=== PATIENT | female | born 1935 | race Caucasian/White ===

== ENCOUNTER 2020-01-03 22:12 | Emergency (ER) | payer MEDICARE, BC ==
[~2020-01-03] VITALS: Ht 157.5 cm; Wt 58.6 kg
[2020-01-03] MEDS ORDERED: normal saline 1000ML IV soln IVB ONE (22:20)
[2020-01-03 23:27] LABS: BASOPHILS # (AUTO) 0.1 X10'3 (0-0.2); BASOPHILS % (AUTO) 0.6 % (0-1); EOSINOPHILS % (AUTO) 0.1 % (0-6); HEMATOCRIT 41.2 % (35.0-45.0); HEMOGLOBIN 14.1 g/dl (12.0-16.0); LYMPHOCYTES # (AUTO) 1.5 X10'3 (1.1-4.8); LYMPHOCYTES % (AUTO) 14.4 % (21-51); MEAN CORPUSCULAR HEMOGLOBIN 32.1 PG (27.0-31.0); MEAN CORPUSCULAR HGB CONC 34.3 g/dL (33.0-36.5); MEAN CORPUSCULAR VOLUME 93.5 FL (78-98); MEAN PLATELET VOLUME 7.5 FL (7.4-10.4); MONOCYTES # (AUTO) 0.5 X10'3 (0-0.9); MONOCYTES % (AUTO) 4.5 % (2-12); NEUTROPHILS # (AUTO) 8.2 X10'3 (1.8-7.7); NEUTROPHILS % (AUTO) 80.4 % (42-75); PLATELET COUNT 288 X10'3 (140-440); RED CELL DISTRIBUTION WIDTH 13.6 % (11.5-14.5); WHITE BLOOD COUNT 10.2 X10'3 (4.5-11.0)
[2020-01-03 23:39] LABS: PARTIAL THROMBOPLASTIN TIME 25 SECONDS (22-32)
[2020-01-03 23:41] LABS: ALANINE AMINOTRANSFERASE 25 U/L (12-78); ALBUMIN 3.8 G/DL (3.4-5.0); ALKALINE PHOSPHATASE 90 IU/L (46-116); ANION GAP 15 (8-16); ASPARTATE AMINO TRANSFERASE 25 U/L (10-37); BILIRUBIN,TOTAL 0.2 MG/DL (0.1-1.0); BLOOD UREA NITROGEN 18 MG/DL (7-18); BUN/CREATININE RATIO 17.6 (6.6-38.0); CALCIUM 9.3 MG/DL (8.5-10.1); CHLORIDE 105 MMOL/L (99-107); CREATININE 1.02 MG/DL (0.40-0.90); ETHANOL 0.102 GM/DL (0.0-0.010); GLUCOSE 90 MG/DL (70-104); POTASSIUM 3.2 MMOL/L (3.5-5.1); SODIUM 142 MMOL/L (135-145); TOTAL CARBON DIOXIDE 21.7 MMOL/L (24-32); TOTAL PROTEIN 7.7 G/DL (6.4-8.2); eGFR 52 ML/MIN
[2020-01-03 23:53] LABS: CLARITY,URINE CLEAR (Clear); COLOR,URINE YELLOW (Yellow); GLUCOSE, URINE NEGATIVE (Neg); KETONES,URINE TRACE mg/dl (Neg); LEUKOCYTE ESTERASE ,URINE TRACE (Neg); NITRITES, URINE NEGATIVE (Neg); OCCULT BLOOD,URINE SMALL (Neg); PROTEIN,URINE NEGATIVE (Neg); UROBILINOGEN,URINE 0.2 E.U/dL (0.2-1.0)
[2020-01-03 23:59] LABS: UA COLLECTION TYPE CLN CATCH MIDSTREAM
[2020-01-04 00:01] LABS: BACTERIA,URINE NONE SEEN /HPF (Neg); RBC,URINE 0-2 /HPF (0-2); SQUAMOUS EPITHELIAL CELL,UR NONE SEEN /LPF (FEW); WBC,URINE 0-4 /HPF (0-4)
[2020-01-04 00:06] LABS: URINE AMPHETAMINE SCREEN NEGATIVE (Neg); URINE BARBITUATE SCREEN NEGATIVE (Neg); URINE BENZODIAZEPINES SCREEN NEGATIVE (Neg); URINE CANNABINOID SCREEN NEGATIVE (Neg); URINE COCAINE SCREEN NEGATIVE (Neg); URINE METHADONE SCREEN NEGATIVE (Neg); URINE OPIATE SCREEN NEGATIVE (Neg); URINE PHENCYCLIDINE SCREEN NEGATIVE (Neg)
[2020-01-04 00:39] VITALS: BP 132/72
== END 2020-01-04 00:41 | disposition home or self-care (01) ==
LOC: ER 22:13
DX: F10.129 Alcohol abuse with intoxication, unspecified (principal); R40.4 Transient alteration of awareness; F19.90 Other psychoactive substance use, unspecified, uncomplicated; R53.1 Weakness; G89.4 Chronic pain syndrome; Y90.5 Blood alcohol level of 100-119 mg/100 ml; Z90.89 Acquired absence of other organs; Z88.8 Allergy status to other drugs, medicaments and biological substances; R41.0 Disorientation, unspecified; E03.9 Hypothyroidism, unspecified
CPT/HCPCS: 36415; 70450; 71045; 80053; 80305; 80320; 81001; 85025; 85610; 85730; 87088; 93005; 99285; J7030

== ENCOUNTER 2022-02-18 09:34 | Emergency (ER) | payer MEDICARE, BC ==
[~2022-02-18] VITALS: Ht 154.9 cm; Wt 53.6 kg
[2022-02-18 09:42] VITALS: BP 137/68
--- NOTE | 2022-02-18 12:51 | NUR ---
relieving RN for lunch, wound to rt forearm was sutured, pt arturo well, dressed wound with nonadherent dressing and 4x4, son aware of pt being dc'd and will call caregiver, Radha Farmer, to pick pt up
--- NOTE | 2022-02-18 13:45 | NUR ---
PT REPORTS SHE DOES NOT HAVE A STUDENT SUPPORT SERVICES DIRECTOR AND STATES "WHY IS MY SON CALLING AND GETTING INVOLVED, I CAME HERE BECAUSE LAST TIME YOU GUYS WERE ABLE TO GET ME A CAB BACK HOME". PT A&O X4 AND INSISTING TO HAVE A CAB DRIVE HER HOME. ADDRESS SHE REPORTS HOME ADDRESS REFLECTS HOSPITAL RECORDS. DISCUSSED PT REQUEST WITH PROVIDER ASIM BAIN AND PA AGREES PT APPROPRIATE TO HAVE CAB DRIVE PT HOME. CAB SERVICE TO COME HERE IN APPROX 30-40 MIN. PT UPDATED AND GIVEN A CUP OF COFFEE PER REQUEST WHILE SHE WAITS.
== END 2022-02-18 15:00 | disposition home or self-care (01) ==
LOC: ER 09:34
DX: S51.812A Laceration without foreign body of left forearm, initial encounter (principal); Z90.49 Acquired absence of other specified parts of digestive tract; Z72.89 Other problems related to lifestyle; W19.XXXA Unspecified fall, initial encounter; Y93.89 Activity, other specified; Y92.009 Unspecified place in unspecified non-institutional (private) residence as the place of occurrence of the external cause; Y99.8 Other external cause status
CPT/HCPCS: 12004; 99283